=== PATIENT | male | born 1985 | race Caucasian/White ===

== ENCOUNTER 2017-12-01 16:54 | Emergency (ER) | payer BC ==
[2017-12-01] MEDS ORDERED: Ketorolac 60 MG/2 ML SDV IM ONE (17:33)
--- NOTE | 2017-12-01 17:34 | EDM.PDOC ---
ED HPI GENERAL MEDICAL PROBLEM - General Chief Complaint: Upper Extremity Injury/Pain Stated Complaint: SMASHED RT ARM Time Seen by Provider: 12/01/17 17:33 Source of Information: Reports: Patient - History of Present Illness INITIAL COMMENTS - FREE TEXT/NARRATIVE: HISTORY AND PHYSICAL: History of present illness: [Patient presents with right arm pain developed acutely after a 400 pound pump fell on his right anterior forearm near the elbow just prior to arrival. Patient was at work when this occurred, he presents by private vehicle ambulatory in no distress complains of right arm discomfort, the pump was somehow suspended and dropped 2-3 inches onto his arm rates pain 8 out of 10 on arrival [place] other injury or trauma no head injury or loss of consciousness no fever nausea vomiting chills sweats no chest pain shortness breath headache dizziness palpitation no bowel or urine symptoms ] Review of systems: As per history of present illness and below otherwise all systems reviewed and negative. Past medical history: As per history of present illness and as reviewed below otherwise noncontributory. Surgical history: As per history of present illness and as reviewed below otherwise noncontributory. Social history: No reported history of drug or alcohol abuse. Family history: As per history of present illness and as reviewed below otherwise noncontributory. Physical exam: HEENT: Atraumatic, normocephalic, pupils reactive, negative for conjunctival pallor or scleral icterus, mucous membranes moist, throat clear, neck supple, nontender, trachea midline. Lungs: Clear to auscultation, breath sounds equal bilaterally, chest nontender. Heart: S1S2, regular, negative for clicks, rubs, or JVD. Abdomen: Soft, nondistended, nontender. Negative for masses or hepatosplenomegaly. Negative for costovertebral tenderness. Pelvis: Stable nontender. Genitourinary: Deferred. Rectal: Deferred. Extremities: Atraumatic, negative for cords or calf pain. Neurovascular unremarkable. Right upper extremity shoulder and wrist on affected pain with palpation over the forearm near the elbow with some muscle spasm noted no obvious deformity no bruising or open lesion entire limb neurovascularly intact capillary refill 3 seconds no pallor or compartment syndrome noted Neuro: Awake, alert, oriented. Cranial nerves II through XII unremarkable. Cerebellum unremarkable. Motor and sensory unremarkable throughout. Exam nonfocal. Diagnostics: [Right elbow 3 views ] Therapeutics: [ toradol 60 IM ] Sling comfort Toradol Impression: [Right elbow pain] Contusion Muscle spasm Definitive disposition and diagnosis as appropriate pending reevaluation and review of above. Right Arm Pain Score (Numeric/FACES): 4 - Related Data Allergies Allergy/AdvReac Type Severity Reaction Status Date / Time No Known Allergies Allergy Verified 12/01/17 17:40 Home Meds: Home Meds . [No Known Home Meds] 12/01/17 [History] Review of Systems - Review of Systems Review Of Systems: ROS reveals no pertinent complaints other than HPI. ED EXAM, GENERAL - Physical Exam Exam: See Below Course - Vital Signs Last Recorded V/S: Last Vital Signs Temp 99.9 F 12/01/17 17:41 Pulse 75 12/01/17 17:41 Resp 16 12/01/17 17:41 BP 138/89 12/01/17 17:41 Pulse Ox 97 12/01/17 17:41 - Orders/Labs/Meds Orders: Active Orders 24 hr Category Date Time Status Elbow Min 3V Rt [CR] Stat Exams 12/01/17 17:33 Taken Meds: Medications Discontinued Medications Generic Name Dose Route Start Last Admin Trade Name Freq PRN Reason Stop Dose Admin Ketorolac Tromethamine 60 mg 12/01/17 17:33 12/01/17 18:03 Toradol IM 12/01/17 17:34 60 mg ONETIME ONE Administration Departure - Departure Time of Disposition: 19:00 Disposition: Home, Self-Care 01 Condition: Good Clinical Impression: Contusion, Crush injury - Discharge Information Referrals: PCP,None [Primary Care Provider] - Forms: ED Department Discharge Additional Instructions: Medication as prescribed Return if symptoms persist or worsen or new concerning symptoms develop Follow-up with primary care in 2 weeks sooner as needed [facility] [address] [place] [address] The following information is given to patients seen in the emergency department who are being discharged to home. This information is to outline your options for follow-up care. We provide all patients seen in our emergency department with a follow-up referral. The need for follow-up, as well as the timing and circumstances, are variable depending upon the specifics of your emergency department visit. If you don't have a primary care physician on staff, we will provide you with a referral. We always advise you to contact your personal physician following an emergency department visit to inform them of the circumstance of the visit and for follow-up with them and/or the need for any referrals to a consulting specialist. The emergency department will also refer you to a specialist when appropriate. This referral assures that you have the opportunity for follow-up care with a specialist. All of these measure are taken in an effort to provide you with optimal care, which includes your follow-up. Under all circumstances we always encourage you to contact your private physician who remains a resource for coordinating your care. When calling for follow-up care, please make the office aware that this follow-up is from your recent emergency room visit. If for any reason you are refused follow-up, please contact the [facility] emergency department at and asked to speak to the emergency department charge nurse. - My Orders Last 24 Hours: My Active Orders 12/01/17 17:33 Elbow Min 3V Rt [CR] Stat - Assessment/Plan Last 24 Hours: My Active Orders 12/01/17 17:33 Elbow Min 3V Rt [CR] Stat
--- NOTE | 2017-12-02 09:47 | CR ---
EXAM DATE: 12/01/17 PATIENT'S AGE: 32 Patient: RODERICK PETE Facility: [place], [place] Site . Site : 1985 Study: XRay Extremity Right elbow [id number]/[id number] 6:04:17 PM Ordering Physician: Betty Hernandez Final Report: Indication: Injury Technique: Three views of the right elbow Comparison: None available Findings: Bones: A small calcific density adjacent to the coronoid process on the lateral view, not well seen on the other views, which could be projectional or related to prior trauma or degenerative change. A lucency at the base of a prominent olecranon enthesophyte, of unclear chronicity. Otherwise no acute fracture or dislocation. Joint spaces: Unremarkable. Soft tissues: Soft tissue swelling along the medial aspect of the elbow. Impression: No gross fracture seen. An apparent small calcific density in the region of the coronoid process may be projectional. Correlate for focal tenderness. A partially fragmented olecranon enthesophyte, of unclear chronicity. Dictated by Andi Mukherjee MD @ 12/01/2017 7:39:33 PM Dictated by: Andi Mukherjee MD @ 12/01/2017 19:39:38 (Electronic Signature) Report Signed by Proxy. BRENDA
== END 2017-12-01 20:07 | disposition home or self-care (01) ==
LOC: MW.ED 16:54
DX: S50.01XA Contusion of right elbow, initial encounter (principal); M25.511 Pain in right shoulder; M25.531 Pain in right wrist; Y99.0 Civilian activity done for income or pay; W20.8XXA Other cause of strike by thrown, projected or falling object, initial encounter; W23.1XXA Caught, crushed, jammed, or pinched between stationary objects, initial encounter
CPT/HCPCS: 73080; 96372; 99283; A4566; J1885